=== PATIENT | female | born 1950 | race Two or more races ===

== ENCOUNTER 2020-05-04 07:48 | Outpatient (CLI) | payer OTHER | END 2020-05-04 07:54 | disposition home or self-care (01) | LOC: SONOGRAMA 07:48 | PROVIDERS: ATTEND Pathology Anatomic Pathology & Clinical Pathology | DX: E04.2 Nontoxic multinodular goiter (principal); D34 Benign neoplasm of thyroid gland ==

== ENCOUNTER 2024-04-15 09:04 | Outpatient (CLI) | payer OTHER | END 2024-04-15 09:08 | disposition home or self-care (01) | LOC: SONOGRAMA 09:04 | PROVIDERS: ATTEND Pathology Anatomic Pathology & Clinical Pathology | DX: D34 Benign neoplasm of thyroid gland (principal); E07.89 Other specified disorders of thyroid ==